=== PATIENT | female | born 1950 | race Caucasian/White ===

== ENCOUNTER 2024-06-24 13:27 | Outpatient (CLI) | payer MEDICARE | END 2024-06-24 13:28 | disposition home or self-care (01) | LOC: BICMAMMO 13:27 | PROVIDERS: ATTEND Physician Assistant | DX: Z13.820 Encounter for screening for osteoporosis (principal); M85.851 Other specified disorders of bone density and structure, right thigh | CPT/HCPCS: 77080 ==

== ENCOUNTER 2025-05-18 14:17 | Outpatient (CLI) | payer MEDICARE | END 2025-05-18 14:18 | disposition home or self-care (01) | LOC: SCSRAD 14:17 | PROVIDERS: ATTEND Family Medicine | DX: E87.1 Hypo-osmolality and hyponatremia (principal) | CPT/HCPCS: 36415; 71046; 80053; 83930 ==

== ENCOUNTER 2025-05-24 14:26 | Outpatient (CLI) | payer MEDICARE | END 2025-05-24 14:27 | disposition home or self-care (01) | LOC: CT 14:26 | PROVIDERS: ATTEND Family Medicine | DX: E87.1 Hypo-osmolality and hyponatremia (principal); R91.8 Other nonspecific abnormal finding of lung field | CPT/HCPCS: 71250 ==